=== PATIENT | male | born 1945 | race Caucasian/White ===

== ENCOUNTER 2019-08-13 17:46 | Emergency (ER) | payer MEDICARE ==
[2019-08-13 18:17] VITALS: BP 142/79; PULSE 64
--- NOTE | 2019-08-13 19:30 | EDM.PDOC ---
ED HPI GENERAL MEDICAL PROBLEM - General Chief Complaint: Gastrointestinal Problem Stated Complaint: BLOOD IN STOOL Time Seen by Provider: 08/13/19 20:05 Source of Information: Reports: Patient History Limitations: Reports: No Limitations - History of Present Illness INITIAL COMMENTS - FREE TEXT/NARRATIVE: 74-year-old with history of COPD, pulmonary hypertension who presents with concerns of bright red blood per rectum. He reports 3 bloody bowel movements today. The toilet bowl was filled with bloody water and he also passed several clots. He reports no prior history of GI bleeding. His last colonoscopy was well over a decade ago, does report that there were some diverticulosis. he is not on any blood thinners. He has no abdominal pain. He denies any worsening dyspnea or chest pain. Left Chest Pain Score (Numeric/FACES): 6 - Related Data Allergies Allergy/AdvReac Type Severity Reaction Status Date / Time Iodinated Contrast Media Allergy Hives Verified 08/13/19 18:17 [Iodinated Contrast Media - IV Dye] Home Meds: Home Meds Budesonide/Formoterol Fumarate [Symbicort 160-4.5 Mcg Inhaler] 2 puff IH BID PRN 08/13/19 [History] Ipratropium [Atrovent HFA Inh] 2 puff .XX BID PRN 08/13/19 [History] Sildenafil Citrate 20 mg PO TID 08/13/19 [History] Past Medical History HEENT History: Reports: Impaired Vision Cardiovascular History: Reports: High Cholesterol, Hypertension, SOB on Exertion Respiratory History: Reports: COPD, Pneumonia, Recurrent, Pneumothorax, SOB Other Respiratory History: chest tube 05/14/2015 Gastrointestinal History: Reports: Other (See Below) Other Gastrointestinal History: polyps, diverticulitis Musculoskeletal History: Reports: Fracture Other Musculoskeletal History: fx fingers arm wrist Neurological History: Reports: Concussion, Head Trauma, Migraines Psychiatric History: Reports: Anxiety, Depression Endocrine/Metabolic History: Reports: Obesity/BMI 30+ Hematologic History: Reports: Blood Transfusion(s) Dermatologic History: Reports: Other (See Below) Other Dermatologic History: red spots on legs from IV dye contrast - Infectious Disease History Infectious Disease History: Reports: Chicken Pox, Measles, Mumps - Past Surgical History GI Surgical History: Reports: Colonoscopy, Hernia Repair/Other, Other (See Below ) Other GI Surgeries/Procedures: umbilical hernia surgery Social & Family History - Tobacco Use Smoking Status *Q: Former Smoker Years of Tobacco use: 20 Packs/Tins Daily: 1 Used Tobacco, but Quit: Yes Month/Year Tobacco Last Used: May 2000 Second Hand Smoke Exposure: No - Caffeine Use Caffeine Use: Reports: Coffee - Alcohol Use Days Per Week of Alcohol Use: 0 - Recreational Drug Use Recreational Drug Use: No ED ROS GENERAL - Review of Systems Review Of Systems: See Below Constitutional: Reports: No Symptoms HEENT: Reports: No Symptoms Respiratory: Reports: No Symptoms Cardiovascular: Reports: No Symptoms Endocrine: Reports: No Symptoms GI/Abdominal: Reports: Hematochezia : Reports: No Symptoms Musculoskeletal: Reports: No Symptoms Skin: Reports: No Symptoms Neurological: Reports: No Symptoms Psychiatric: Reports: No Symptoms Hematologic/Lymphatic: Reports: No Symptoms Immunologic: Reports: No Symptoms ED EXAM, GI/ABD - Physical Exam Exam: See Below Exam Limited By: No Limitations General Appearance: Alert, No Apparent Distress Head: Atraumatic, Normocephalic Neck: Normal Inspection Respiratory/Chest: No Respiratory Distress, No Accessory Muscle Use, Wheezing Cardiovascular: Regular Rate, Rhythm GI/Abdominal Exam: Soft, Non-Tender Rectal (Males) Exam: Other (dried bright red blood around the rectum. No hemorrhoid.) Back Exam: Normal Inspection Extremities: Normal Inspection Neurological: Alert, Oriented Psychiatric: Normal Affect, Normal Mood Skin Exam: Warm, Dry Course - Vital Signs Last Recorded V/S: Last Vital Signs Temp 36.5 C 08/13/19 18:15 Pulse 64 08/13/19 18:15 Resp 24 H 08/13/19 18:15 BP 142/79 H 08/13/19 18:15 Pulse Ox 89 L 08/13/19 18:15 - Orders/Labs/Meds Labs: Laboratory Tests 08/13/19 08/13/19 08/13/19 Range/Units 18:54 18:54 19:26 WBC 9.1 (4.5-11.0) K/uL RBC 5.27 (4.30-5.90) M/uL Hgb 15.8 H (12.0-15.0) g/dL Hct 52.4 (40.0-54.0) % MCV 99 H (80-98) fL MCH 30 (27-31) pg MCHC 30 L (32-36) % Plt Count 203 (150-400) K/uL PT 11.1 (9.5-12.0) sec INR 1.03 (0.80-1.20) Sodium 147 (140-148) mmol/L Potassium 4.9 (3.6-5.2) mmol/L Chloride 110 H (100-108) mmol/L Carbon Dioxide 29 (21-32) mmol/L Anion Gap 12.9 (5.0-14.0) mmol/L BUN 26 H D (7-18) mg/dL Creatinine 1.3 (0.8-1.3) mg/dL Est Cr Clr Drug Dosing 47.50 mL/min Estimated GFR (MDRD) 54 L (>60) Glucose 109 H (74-106) mg/dL Calcium 8.4 L (8.5-10.1) mg/dL Total Bilirubin 0.5 (0.2-1.0) mg/dL AST 17 (15-37) U/L ALT 24 (12-78) U/L Alkaline Phosphatase 98 (46-116) U/L Total Protein 6.5 (6.4-8.2) g/dL Albumin 3.3 L (3.4-5.0) g/dL Globulin 3.2 (2.3-3.5) g/dL Albumin/Globulin Ratio 1.0 L (1.2-2.2) Lipase 64 L (73-393) U/L - Re-Assessments/Exams Free Text/Narrative Re-Assessment/Exam: This is a 74-year-old presents with concerns of bright red blood per rectum. Reviewed photos which do show red staining of toilet water On exam he is found to have stable vital signs on his baseline 2L of home O2. Labs with hgb at baseline. Normal co-ags. He has a history of diverticulosis and his presentation is consistent with a stable, lower GI bleed. He is safe for discharge with prompt PCP follow to arrange colonoscopy. He spoke with his PCP earlier today who told him he can been seen tomorrow, the patient will call in AM to confirm time. He will return to the ER for worsening symptoms. 08/13/19 20:19 Departure - Departure Time of Disposition: 20:21 Disposition: Home, Self-Care 01 Clinical Impression: Bright red blood per rectum - Discharge Information *PRESCRIPTION DRUG MONITORING PROGRAM REVIEWED*: No *COPY OF PRESCRIPTION DRUG MONITORING REPORT IN PATIENT ELIO: No Instructions: Gastrointestinal Bleeding Referrals: Yasir Nunez Sr, MD [Primary Care Provider] - Forms: ED Department Discharge Additional Instructions: You are having bleeding from your lower gastrointestinal tract. You do not need to be hospitalized for this, but it is important that you have prompt follow up with your primary doctor to arrange colonoscopy. You also should return to the ER if the bleeding become persistent or you develop abdominal pain, worsening breathing, or other symptoms which are concerning to you. Call Dr Nunez's office in the morning to determine what time he can see you. Sepsis Event Note - Evaluation Sepsis Screening Result: No Definite Risk - Focused Exam Vital Signs: Vital Signs Temp Pulse Resp BP Pulse Ox 08/13/19 18:15 36.5 C 64 24 H 142/79 H 89 L Date Exam was Performed: 08/13/19 Time Exam was Performed: 20:05
--- NOTE | 2019-08-13 19:52 | CRLCR ---
HISTORY: Shortness of breath. TECHNIQUE: Two views of the chest. COMPARISON: 11/09/2018. FINDINGS: COPD with probable bullous change within the right upper lobe. There are coarse reticular opacities within the mid to lower lung zones which may indicate coexistent fibrosis. There is somewhat more nodular opacity at the right lung base for which radiographic followup is recommended. There is no lung consolidation. No pneumothorax. Borderline cardiomegaly. There are degenerative changes of the spine. Multiple remote left-sided rib fractures. IMPRESSION: 1. COPD. 2. Coarse opacities within the mid to lower lung zones may indicate coexistent fibrosis. 3. Small more nodular opacity at the right lung base warrants radiographic follow-up. 4. No consolidation. Dictated by Terence Álvarez MD @ 08/13/2019 7:50:39 PM Dictated by: Terence Álvarez MD @ 08/13/2019 19:50:54 (Electronically Signed)
== END 2019-08-13 21:14 | disposition home or self-care (01) ==
LOC: JP.ED 17:46
DX: K62.5 Hemorrhage of anus and rectum (principal); J44.9 Chronic obstructive pulmonary disease, unspecified; I10 Essential (primary) hypertension; E66.9 Obesity, unspecified; Z91.041 Radiographic dye allergy status; Z79.51 Long term (current) use of inhaled steroids; Z68.41 Body mass index [BMI] 40.0-44.9, adult; Z87.891 Personal history of nicotine dependence
CPT/HCPCS: 36415; 71046; 80053; 83690; 85027; 85610; 99283; 99283-25

== ENCOUNTER 2019-08-22 06:22 | Day surgery (SDC) | payer MEDICARE ==
[~2019-08-22 06:22] MED LIST: Sodium Chloride 0.9% 1,000 ML IV SCH
[2019-08-22] MEDS ORDERED: Sodium Chloride 0.9% 1,000 ML IV SCH (07:00)
[2019-08-22] MEDS ORDERED: fentaNYL 100 MCG/2 ML SDV ONE (07:29)
[2019-08-22] MEDS ORDERED: Propofol 200 MG/20 ML SDV ONE (07:29)
[2019-08-22] MEDS ORDERED: Atropine 0.1 MG/ML 10 ML Syringe IVPUSH ONE ×2 (07:43→08:05)
[2019-08-22] MEDS ORDERED: EPINEPHrine 1:10,000 1 MG/10 ML Syringe IV ONE ×2 (07:46→08:05)
[2019-08-22] MEDS ORDERED: EPINEPHrine 1 MG in Sodium Chloride 0.9% 100 ML IV SCH ×2 (08:15→12:00)
[2019-08-22] MEDS ORDERED: Midazolam 1 MG/ML 2 ML SDV IVPUSH ONE ×2 (08:28→08:34)
[2019-08-22] MEDS ORDERED: fentaNYL 100 MCG/2 ML SDV IVPUSH ONE ×2 (08:30)
[2019-08-22] MEDS ORDERED: fentaNYL 250 MCG/5 ML SDV IVPUSH ONE (08:32)
--- NOTE | 2019-08-22 10:20 | CR ---
CHEST: Portable 08/22/2019 at 0905 CLINICAL HISTORY:Intubation COMPARISON:08/13/2019 FINDINGS: There is interval intubation. Endotracheal tube is in the mid trachea. There is a linear radiopacity in the neck extending to the mid mediastinum. This may be an NG tube in the esophagus. Lungs are emphysematous. There is moderate bullous formation in the right upper lobe. Heart is mildly enlarged pulmonary vascular is normal. A small left rib fractures Impression: Endotracheal intubation. There may be an NG tube in the distal third of the esophagus Underlying COPD
--- NOTE | 2019-08-22 19:53 | PCM.OPNOTE ---
- General Post-Op/Procedure Note Date of Surgery/Procedure: 08/22/19 Pre Op Diagnosis: gastrointestinal blood loss vomiting blood loss in stools Post-Op Diagnosis: cardiac arrest, respiratory arrest intubated, cardiac massage , sent to the emergency room and transferred to [facility] in [place]. Primary Surgeon: Yasir Nunez Sr Secondary Surgeon: Yasir Nunez Sr Condition: Good Free Text/Narrative:: Jose started to pass blood to the rectum as well as vomiting blood and was brought to the outpatient department in [facility] and then brought to the procedure room for an EGD and a colonoscopy. Anesthesia was given by nurse community action worker this and put the tube in to the esophagus and he immediately aspirated. The procedure was terminated he had a cardiac and respiratory arrest. He was intubated immediately also was given cardiac massage. Atropine and adrenaline was given which caused a rapid heart rate up to over 200 beats a minute and then came down to bradycardic and more atropine and abdomen was given and then stabilized. He was then brought to the emergency room. He was then placed on a respirator and adrenaline drip was started to control the heart rate so he would not go bradycardic. The ambulance was called and I spoke with [facility] and he was transferred to the waiting helicopter at the airport and then taken to [place]. The procedure started at 7: 15 and at 9:30 he was eventually transferred to the airport. The colonoscopy and EGD were not done due to the cardiac arrest and respiratory arrest. Laboratory analysis revealed hemoglobin of over 15 and there was elevation of the troponin to greater than 0.5. Preop: GI bleed Postop: Cardiorespiratory arrest, myocardial infarction transferred to [facility] in [place].
[2019-08-24] MEDS ORDERED: EPINEPHrine 1 MG in Sodium Chloride 0.9% 100 ML IV SCH (10:55)
[2019-08-24 12:45] VITALS: BP 90/56; PULSE 99
== END 2019-08-22 09:18 ==
LOC: JP.SDS 06:22
PROVIDERS: ATTEND Internal Medicine
DX: K92.0 Hematemesis (principal); I25.10 Atherosclerotic heart disease of native coronary artery without angina pectoris; J44.9 Chronic obstructive pulmonary disease, unspecified; Z88.1 Allergy status to other antibiotic agents; Z91.041 Radiographic dye allergy status; Z53.8 Procedure and treatment not carried out for other reasons
CPT/HCPCS: 36415; 43235; 51702; 71045; 80053; 81001; 84484; 85025; 85610; 85730; 87086; 87088; 87186; 93005; 93010; J0171; J0461; J2250; J2704; J3010; J7030; J7050